=== PATIENT | female | born 1995 | race Caucasian/White ===

== ENCOUNTER 2018-03-24 23:31 | Emergency (ER) | payer OTHER | END 2018-03-25 02:58 | disposition home or self-care (01) | LOC: FTE 23:31 | DX: J06.9 Acute upper respiratory infection, unspecified (principal); J45.901 Unspecified asthma with (acute) exacerbation | CPT/HCPCS: 93005; 99283-25 ==

== ENCOUNTER 2018-09-01 02:06 | Emergency (ER) | payer OTHER ==
[2018-09-01] MEDS ORDERED: ALBUTEROL 0.083% (NEB) 2.5 MG/3 ML AMP NEB (03:33)
[2018-09-01] MEDS: predniSONE 20 MG TAB PO (03:45)
[2018-09-01] MEDS: IPRATROPIUM (NEB) 0.5 MG/2.5 ML AMP NEB (04:16)
[2018-09-01] MEDS: ALBUTEROL 0.083% (NEB) 2.5 MG/3 ML AMP NEB (04:17)
== END 2018-09-01 05:04 | disposition home or self-care (01) ==
LOC: FTE 05:04
DX: J45.901 Unspecified asthma with (acute) exacerbation (principal)
CPT/HCPCS: 93005; 94664; 99284-25

== ENCOUNTER 2018-10-24 16:45 | Emergency (ER) | payer OTHER ==
[2018-10-24 18:59] LABS: ADD UMIC YES; UR AMORPHOUS CRYSTAL MANY /HPF (NONE SEEN); UR ASCORBIC ACID NEGATIVE (NEGATIVE); UR BACTERIA FEW /HPF (NONE SEEN); UR BILIRUBIN (Dip) NEGATIVE (NEGATIVE); UR BLOOD (Dip) 3+ mg/dL (NEGATIVE); UR CLARITY TURBID (CLEAR); UR COLOR YELLOW (YELLOW); UR GLUCOSE (Dip) NEGATIVE (NEGATIVE); UR KETONES (Dip) NEGATIVE (NEGATIVE); UR LEUKOCYTE ESTERASE (Dip) 3+ Leu/ul (NEGATIVE); UR NITRITE (Dip) NEGATIVE (NEGATIVE); UR RBC > 182 /HPF (0-5); UR SPECIFIC GRAVITY (Dip) 1.014 (1.003-1.030); UR SQUAMOUS EPITHELIAL CELL MODERATE /HPF (FEW); UR TOTAL PROTEIN (Dip) NEGATIVE (NEGATIVE); UR UROBILINOGEN (Dip) NEGATIVE (NEGATIVE); UR WBC 47 /HPF (0-5)
== END 2018-10-24 20:30 | disposition home or self-care (01) ==
LOC: FTE 16:45
DX: O20.9 Hemorrhage in early pregnancy, unspecified (principal); O99.512 Diseases of the respiratory system complicating pregnancy, second trimester; J45.909 Unspecified asthma, uncomplicated; Z3A.18 18 weeks gestation of pregnancy
CPT/HCPCS: 76805; 81001; 87086; 99284-25

== ENCOUNTER 2018-11-30 18:11 | Outpatient (CLI) | payer OTHER ==
[2018-11-30 19:06] LABS: ADD UMIC YES; UR ASCORBIC ACID NEGATIVE (NEGATIVE); UR BACTERIA FEW /HPF (NONE SEEN); UR BILIRUBIN (Dip) NEGATIVE (NEGATIVE); UR BLOOD (Dip) 3+ mg/dL (NEGATIVE); UR CLARITY SLIGHTLY CLOUDY (CLEAR); UR COLOR YELLOW (YELLOW); UR GLUCOSE (Dip) NEGATIVE (NEGATIVE); UR KETONES (Dip) NEGATIVE (NEGATIVE); UR LEUKOCYTE ESTERASE (Dip) 3+ Leu/ul (NEGATIVE); UR NITRITE (Dip) NEGATIVE (NEGATIVE); UR RBC > 182 /HPF (0-5); UR SPECIFIC GRAVITY (Dip) 1.012 (1.003-1.030); UR SQUAMOUS EPITHELIAL CELL FEW /HPF (FEW); UR TOTAL PROTEIN (Dip) NEGATIVE (NEGATIVE); UR UROBILINOGEN (Dip) NEGATIVE (NEGATIVE); UR WBC 8 /HPF (0-5)
== END 2018-11-30 22:10 | disposition home or self-care (01) ==
LOC: OBT 18:11 → L-D 18:14 → OBT 22:10
DX: O26.892 Other specified pregnancy related conditions, second trimester (principal); N93.0 Postcoital and contact bleeding; Z3A.23 23 weeks gestation of pregnancy
CPT/HCPCS: 76815; 76817; 81001; 87086